=== PATIENT | male | born 1970 | race Caucasian/White ===

== ENCOUNTER 2019-12-27 00:13 | Emergency (ER) | payer OTHER ==
[~2019-12-27] VITALS: Ht 162.6 cm; Wt 67.1 kg
[2019-12-27 00:21] VITALS: Ht 162.6 cm; Wt 67.1 kg
[2019-12-27 01:12] LABS: CALCIUM 9.4 mg/dL (8.5-10.1); CARBON DIOXIDE 26.3 mmol/L (21-32); CHLORIDE SERUM 104 mmol/L (98-107); CREATININE SERUM 0.8 mg/dL (0.7-1.3); GFR1 > 60 mL/min; GLUCOSE SERUM 109 mg/dL (74-106); POTASSIUM SERUM 3.5 mmol/L (3.5-5.1); SODIUM SERUM 141 mmol/L (136-145)
[2019-12-27 01:16] LABS: BASOPHIL % 1.2 % (0-2); PLATELET COUNT 286 x10^3mcL (130-400)
[2019-12-27 01:23] LABS: ALBUMIN 4.1 g/dL (3.4-5.0); ALKALINE PHOSPHATASE 78 U/L (46-116); ALT/SGPT 57 U/L (16-63); AST/SGOT 32 U/L (15-37); BILIRUBIN TOTAL 0.72 mg/dL (0.20-1.00); TOTAL PROTEIN, SERUM 7.2 g/dL (6.4-8.2)
[2019-12-27 05:02] VITALS: BP 121/77
== END 2019-12-27 05:02 | disposition home or self-care (01) ==
LOC: ED 00:13
PROVIDERS: Emergency Medicine
DX: R07.89 Other chest pain (principal); G25.81 Restless legs syndrome; E78.00 Pure hypercholesterolemia, unspecified
CPT/HCPCS: 36415; 83880; Q0092